=== PATIENT | male | born 1970 | race Caucasian/White ===

== ENCOUNTER 2020-02-21 23:21 | Emergency (ER) | payer OTHER ==
[~2020-02-21] VITALS: Ht 162.6 cm; Wt 81.6 kg
[2020-02-21 23:21] VITALS: BP 138/93
--- NOTE | 2020-02-21 23:21 | NUR ---
[facility] TAKEN TO CHAIR C
--- NOTE | 2020-02-22 00:15 | NUR ---
PT TAKEN TO RAD VIA W/C
[2020-02-22] MEDS ORDERED: DILTIAZEM 25 MG/5 ML VIAL IVP ONE (00:50)
--- NOTE | 2020-02-22 01:15 | NUR ---
PT TAKEN TO BED 1, AMBULATED WITH STEADY GAIT.
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
[2020-02-22] MEDS ORDERED: NACL 0.9% 1,000 ML IV ONE (01:25)
--- NOTE | 2020-02-22 01:25 | NUR ---
ERMD AT BEDSIDE.
--- NOTE | 2020-02-22 01:27 | NUR ---
RT AT BEDSIDE. ABG COLLECTED AND RESULTS GIVEN TO TARIQ.
--- NOTE | 2020-02-22 01:36 | NUR ---
URINAL GIVEN TO PT. PT ABLE TO VOID 500CC OF YELLOW URINE.
--- NOTE | 2020-02-22 02:15 | NUR ---
PT HR-114, ERMD NOTIFIED AND GIVE OK FOR PT TO BE DISCHARGED.
[2020-02-22 02:33] VITALS: BP 135/69
--- NOTE | 2020-02-22 02:33 | NUR ---
Patient discharged with v/s stable. Written and verbal after care instructions given and explained. Patient verbalized understanding. Ambulatory with steady gait. All questions addressed prior to discharge. Advised to follow up with PMD.
== END 2020-02-22 02:33 | disposition home or self-care (01) ==
LOC: MED 23:21
DX: R00.0 Tachycardia, unspecified (principal); E11.9 Type 2 diabetes mellitus without complications; I10 Essential (primary) hypertension; V89.2XXA Person injured in unspecified motor-vehicle accident, traffic, initial encounter; Y93.89 Activity, other specified; Y92.89 Other specified places as the place of occurrence of the external cause; Y99.8 Other external cause status
CPT/HCPCS: 36600; 71045; 71250; 72040; 72125; 82803; 93005; 96361; 96374; 99283; J3490; J7030

== ENCOUNTER 2020-08-03 04:40 | Emergency (ER) | payer SELFPAY ==
[~2020-08-03] VITALS: Ht 165.1 cm; Wt 113.4 kg
--- NOTE | 2020-08-03 04:49 | NUR ---
BIB [facility] PRE-BOOK. PT WITH DM, H/O HIGH BLOOD SUGAR.
[2020-08-03 04:50] VITALS: BP 134/68
--- NOTE | 2020-08-03 05:01 | NUR ---
DR. DODGE EXAMINING
[2020-08-03] MEDS ORDERED: INSULIN REGULAR, HUMAN 100 UNIT/ML VIAL SUBQ ONE (05:05)
[2020-08-03 05:15] VITALS: BP 134/68
--- NOTE | 2020-08-03 05:15 | NUR ---
Patient discharged with v/s stable. Written and verbal after care instructions given and explained. Patient verbalized understanding. Ambulatory with in custody. All questions addressed prior to discharge. Advised to follow up with PMD.
== END 2020-08-03 05:15 ==
LOC: MED 04:40
DX: F10.129 Alcohol abuse with intoxication, unspecified (principal); E11.9 Type 2 diabetes mellitus without complications; Z02.89 Encounter for other administrative examinations; Y90.9 Presence of alcohol in blood, level not specified
CPT/HCPCS: 96372; 99283; J1815